=== PATIENT | female | born 1985 | race Caucasian/White ===

== ENCOUNTER 2017-11-30 10:42 | Inpatient (IN) | payer OTHER ==
[2017-11-29 10:48] LABS: MEAN CORPUSCULAR HEMOGLOBIN 28.3 pg (27.0-34.8); MEAN CORPUSCULAR HGB CONC 33.4 g/dL (32.4-35.8); MEAN CORPUSCULAR VOLUME 84.7 fL (80-100); MEAN PLATELET VOLUME 8.5 fL (7.4-10.4); PLATELET COUNT 362 x10^3/uL (130-400); RED BLOOD COUNT 5.51 x10^6/uL (3.82-5.3); RED CELL DISTRIBUTION WIDTH 14.2 % (9.6-15.2)
[~2017-11-30] VITALS: Ht 162.6 cm; Wt 90.2 kg
[~2017-11-30 10:42] MED LIST: BUPIVACAINE/PF-EPI 0.5% 1:200K ONE; BUPROPION PO; FERROUS SULFATE PO; HEPARIN 1,000 UNITS/ML, 10ML ONE; HYDROXYZINE PO; METHYLENE BLUE 10 MG/ML 10ML ONE; PREN1TAB60 PO; ZOLOFT PO
[2017-11-30] MEDS ORDERED: LACTATED RINGERS 1,000 ML IV SCH (11:24)
[2017-11-30] MEDS ORDERED: SERT25TA PO (11:35)
[2017-11-30] MEDS ORDERED: HYDROXYZINE PO (11:35)
[2017-11-30] MEDS ORDERED: BUPR150T73 PO (11:35)
[2017-11-30] MEDS ORDERED: FERR325T5 PO (11:35)
[2017-11-30 11:56] LABS: HCG UR SG 1.027 (1.003-1.030)
[2017-11-30] MEDS ORDERED: ONDANSETRON 2MG/ML, 2ML IVPush ONE (12:00)
[2017-11-30] MEDS ORDERED: ACETAMINOPHEN 500 MG TABLET PO ONE (12:00)
[2017-11-30] MEDS ORDERED: GABAPENTIN 300 MG CAPSULE PO ONE (12:00)
[2017-11-30] MEDS ORDERED: MIDAZOLAM 1 MG/ML, 2ML ONE (12:50)
[2017-11-30] MEDS ORDERED: FENTANYL PF 250 MCG/5ML ONE (12:50)
[2017-11-30] MEDS ORDERED: PROPOFOL 10 MG/ML, 20ML ONE (13:05)
[2017-11-30] MEDS ORDERED: LIDOCAINE-MPF 2% ,5ML ONE (13:05)
[2017-11-30] MEDS ORDERED: NEOSTIGMINE 1 MG/ML, 10ML ONE (13:05)
[2017-11-30] MEDS ORDERED: SUCCINYLCHOLINE 20 MG/ML, 10ML ONE ×2 (13:05→13:25)
[2017-11-30] MEDS ORDERED: ROCURONIUM 10 MG/ML,10ML ONE (13:05)
[2017-11-30] MEDS ORDERED: CEFAZOLIN 1,000 MG ONE ×3 (13:05→13:25)
[2017-11-30] MEDS ORDERED: GLYCOPYRROLATE 0.2MG/1ML, 5ML ONE (13:05)
[2017-11-30] MEDS ORDERED: DEXAMETHASONE 4 MG/ML, 1ML ONE ×3 (13:05→13:25)
[2017-11-30] MEDS ORDERED: FENTANYL PF 100 MCG/2ML ONE ×2 (16:39→17:16)
[2017-11-30] MEDS ORDERED: OXYcodone 5 MG/5 ML ORAL.SOL UDC ONE (17:16)
[2017-11-30] MEDS: FENTANYL PF 100 MCG/2ML IV PRN ×2 (17:24→17:31)
[2017-11-30] MEDS ORDERED: OXYcodone 5 MG/5 ML ORAL.SOL UDC PO PRN (18:30)
[2017-11-30] MEDS ORDERED: HYDROmorphone 1 MG/ML, 1ML IV PRN (18:30)
[2017-11-30] MEDS ORDERED: HYDROmorphone 2 MG/ML, 1ML ONE (18:31)
[2017-11-30] MEDS ORDERED: MEPERIDINE/PF 100 MG/ML IM PRN (19:30)
[2017-11-30] MEDS ORDERED: HYDROmorphone 2 MG/ML, 1ML IV PRN (19:30)
[2017-11-30] MEDS ORDERED: ONDANSETRON 2MG/ML, 2ML IV PRN (19:30)
[2017-11-30 20:00] VITALS: BP 110/57
[2017-11-30] MEDS ORDERED: CEFAZOLIN PMX 2GM/50ML 50 ML IVPB SCH (20:00)
[2017-11-30] MEDS: KETOROLAC 30 MG/1 ML IV SCH (20:19)
[2017-11-30] MEDS: POTASSIUM CHLORIDE 20 MEQ in D5%-LACTATED RINGERS 1,000 ML IV SCH (20:19)
[2017-11-30] MEDS: SIMETHICONE 80 MG CHEW TAB PO SCH (20:19)
[2017-11-30 23:38] VITALS: BP 95/49
[2017-12-01 00:52] VITALS: BP 112/52
[2017-12-01] MEDS: KETOROLAC 30 MG/1 ML IV SCH ×3 (02:17→14:19)
[2017-12-01] MEDS: HYDROcodone/APAP 7.5-325MG/15ML UDC PO PRN ×3 (03:07→13:08)
[2017-12-01] MEDS: POTASSIUM CHLORIDE 20 MEQ in D5%-LACTATED RINGERS 1,000 ML IV SCH ×2 (04:31→11:40)
[2017-12-01 07:18] VITALS: BP 102/58
[2017-12-01] MEDS: SIMETHICONE 80 MG CHEW TAB PO SCH ×2 (08:27→14:20)
[2017-12-01 12:19] VITALS: BP 110/67
[2017-12-01] MEDS ORDERED: HYDR-3240 PO (13:51)
[2017-12-01] MEDS ORDERED: IBUP-1222 PO (13:52)
[2017-12-01] MEDS ORDERED: IBUPROFEN 600 MG TABLET PO SCH (20:00)
== END 2017-12-01 15:07 | disposition home or self-care (01) | DRG 743 ==
LOC: OUT 10:42 → 4NOR 18:30 → OUT 18:56 → 4NOR 18:57 → DCLOUNGE 12-01 15:00
PROVIDERS: ADMIT Specialist; ATTEND Specialist
PROC: 0UQ Female Reproductive System, Repair (ICD-10-PCS; principal; 2017-11-30 12:30)
DX: N97.1 Female infertility of tubal origin (principal); Z98.891 History of uterine scar from previous surgery; Z80.8 Family history of malignant neoplasm of other organs or systems; Z82.49 Family history of ischemic heart disease and other diseases of the circulatory system; F32.9 Major depressive disorder, single episode, unspecified
CPT/HCPCS: 36415; J3490; J7121; 81025; 85014; 85018; 85027; G0378; J0690; J1100; J1170; J1644; J1885; J2250; J2405; J2704; J2710; J3010; J3480; J0330; J7120; Q9968

== ENCOUNTER 2018-09-15 13:57 | Outpatient (CLI) | payer OTHER ==
[~2018-09-15 13:57] MED LIST changes: -BUPIVACAINE/PF-EPI 0.5% 1:200K ONE; +BUPR150T73 PO; +FERR325T5 PO; -HEPARIN 1,000 UNITS/ML, 10ML ONE; +HYDR-3240 PO; +IBUP-1222 PO; -METHYLENE BLUE 10 MG/ML 10ML ONE; +SERT25TA PO
== END 2018-09-15 23:59 | disposition home or self-care (01) ==
LOC: CFH 13:57
PROVIDERS: ATTEND Specialist
DX: O09.891 Supervision of other high risk pregnancies, first trimester (principal); Z3A.01 Less than 8 weeks gestation of pregnancy
CPT/HCPCS: 76801